=== PATIENT | female | born 1970 | race Caucasian/White ===

== ENCOUNTER 2023-11-09 09:31 | Emergency (ER) | payer OTHER, SELFPAY ==
[2023-11-09 09:36] VITALS: BP 153/96; PULSE 114; RESP 16; TEMP 36.7; O2SAT 99; BMI 27.6
--- NOTE | 2023-11-09 09:41 | ED.GENADUL1 ---
HPI - General Adult General Chief complaint: Urogenital-Female Stated complaint: BACK PAIN Time Seen by Provider: 11/09/23 09:38 Source: patient History of Present Illness HPI narrative: patient here complaining of right low back pain. She thinks it's kidney stones. She's had them before. She's never had removal of stones or stenting. She's not had fever shakes or chills. She's not seen blood in her urine. She's not on any antibiotics. The pain started last night. It radiates a little bit to the right lower abdomen. She knows that on her drive here. The pain does not radiate down her buttock or leg. She says does not feel like sciatica or musculoskeletal type pain. Related Data Allergies Allergy/AdvReac Type Severity Reaction Status Date / Time ciprofloxacin [From Cipro] Allergy Intermediate RASH Verified 11/09/23 09:36 acetaminophen [From Percocet] Allergy Unknown Verified 11/09/23 09:36 oxycodone [From Percocet] Allergy Unknown Verified 11/09/23 09:36 Exam Narrative Exam Narrative: awake alert pleasant oriented ?3 moves about comfortably. She reaches to her right paralumbar areas area discomfort. She has negative Larry's sign bilaterally. Her lungs are clear with no wheezes rales or rhonchi and there is no obvious musculoskeletal or skin abnormalities examining the flank. She has mild discomfort in the right lower abdomen but certainly no peritoneal findings. She does not have any discomfort when she moves about on the cart. She has no radiculopathy type symptoms. Constitutional Vital Signs, click to edit/add: Last Vital Signs Temp 98.1 F 11/09/23 09:36 Pulse 114 H 11/09/23 09:36 Resp 16 11/09/23 09:36 BP 153/96 H 11/09/23 09:36 Pulse Ox 99 11/09/23 09:36 O2 Del Method Room Air 11/09/23 09:36 Course Vital Signs Vital signs: Vital Signs Temperature 98.1 F 11/09/23 09:36 Pulse Rate 114 H 11/09/23 09:36 Respiratory Rate 16 11/09/23 09:36 Blood Pressure 153/96 H 11/09/23 09:36 Pulse Oximetry 99 11/09/23 09:36 Oxygen Delivery Method Room Air 11/09/23 09:36 Temperature 98.1 F 11/09/23 09:36 Pulse Rate 114 H 11/09/23 09:36 Respiratory Rate 16 11/09/23 09:36 Blood Pressure 153/96 H 11/09/23 09:36 Pulse Oximetry 99 11/09/23 09:36 Oxygen Delivery Method Room Air 11/09/23 09:36 Medical Decision Making MDM Narrative Medical decision making narrative: patient presents with history of kidney stones but atypical clinical scenario. Indeed her CT scan without contrast does not show any stones or evidence of pyelonephritis. The radiologist contacted me and suggested there is some calcification in the right pelvis and uterine area of uncertain etiology. He agreed that a CT scan with contrast might be helpful. That was done and although we have a uterine fibroid no other vascular abnormalities were noted. The appendix is normal. There is no kidney stones or nephrolithiasis. Her white blood cell count is normal. We will advise her to follow up with her senior graphic designer for the fibroid although that really doesn't seem to be causing much the pain. There could be a musculoskeletal component to this as well today. Lab Data Labs: Lab Results 11/09/23 11/09/23 Range/Units 09:58 11:35 WBC 9.9 (4.0-11.0) 10^3/uL RBC 4.15 L (4.20-5.40) 10^6/uL Hgb 12.8 (12.0-16.0) g/dL Hct 38.8 (36.0-48.0) % MCV 93.5 (81.0-99.0) fL MCH 30.8 (26.7-34.0) pg MCHC 33.0 (29.9-35.2) g/dL RDW 13.2 (11.0-15.0) % Plt Count 326 (150-450) 10^3/uL MPV 9.5 (9.5-13.5) fL Neut % (Auto) 67.5 (43.0-75.0) % Lymph % (Auto) 21.6 (20.5-60.0) % [place] % (Auto) 8.1 (1.7-12.0) % Eos % (Auto) 1.9 (0.9-7.0) % Baso % (Auto) 0.6 (0.2-2.0) % Neut # (Auto) 6.7 H (1.4-6.5) 10^3/uL Lymph # (Auto) 2.1 (1.2-3.8) 10^3/uL [place] # (Auto) 0.8 (0.3-0.8) 10^3/uL Eos # (Auto) 0.2 (0.0-0.7) 10^3/uL Baso # (Auto) 0.1 (0.0-0.1) 10^3/uL Abs Immat Gran (auto) 0.03 (0.00-0.03) 10^3/uL Imm/Tot Granulo (auto) 0.3 (0.0-0.5) % Sodium 133 L (136-145) mmol/L Potassium 3.6 (3.5-5.1) mmol/L Chloride 96 L (98-107) mmol/L Carbon Dioxide 27.3 (21.0-32.0) mmol/L Anion Gap 13.3 BUN 16.0 (7.0-18.0) mg/dL Creatinine 0.72 (0.55-1.02) mg/dL Est GFR ( Amer) >60 (>=60) Est GFR (Non-Af Amer) >60 (>=60) BUN/Creatinine Ratio 22.2 Glucose 105 (74-106) mg/dL Calcium 8.8 (8.5-10.1) mg/dL Urine Color Lt. yellow (YELLOW) Urine Clarity Clear (CLEAR) Urine pH 6.0 (5.0-9.0) Ur Specific [place] 1.010 (1.005-1.025) Urine Protein Negative (NEG/TRACE) mg/dL Urine Glucose (UA) Negative (NEGATIVE) mg/dL Urine Ketones >=80 A (NEGATIVE) mg/dL Urine Occult Blood Negative (NEGATIVE) Urine Nitrite Negative (NEGATIVE) Urine Bilirubin Negative (NEGATIVE) Urine Urobilinogen 0.2 (0.2-1.0) EU/dL Ur Leukocyte Esterase Small A (NEGATIVE) Urine RBC 0-2 (0-2) #/HPF Urine WBC 2-5 A (NONE SEEN) #/HPF Ur Squamous Epith Cells Few A (NONE/RARE) #/LPF Urine Crystals None seen (None Seen) #/HPF Urine Bacteria Small A (NONE SEEN) #/HPF Urine Casts None seen (NONE SEEN) #/LPF Urine Mucus None seen (NONE SEEN) Discharge Plan Discharge Chief Complaint: Urogenital-Female Clinical Impression: Fibroid, uterine Patient Disposition: Home, Self-Care Time of Disposition Decision: 12:59 Additional Instructions: follow-up with AUTO MECHANIC SUPERVISOR Stand Alone Forms: Portal Instructions Referrals: LIYA HAAS [Primary Care Provider] - 1 week
--- NOTE | 2023-11-09 09:42 | CT_ITS ---
The [address] [address] Patient Name: SOURAV RIBEIRO MRN: [id number] date: 1970 Sex: F Assigned Patient Location: ER Current Patient Location: ER Accession/Order Number: [id number] Exam Date: 11/09/2023 10:15 Report Date: 11/09/2023 12:20 At the request of: SAY BURCH Procedure: CT abdomen pelvis wo con CT abdomen pelvis wo con, 11/09/2023 10:15 AM EST INDICATION: kidney stone COMPARISON: There is no appropriate prior study for comparison. TECHNIQUE: Axial images of the abdomen and pelvis were obtained without administration of IV contrast. Multiplanar reformatted images were generated and reviewed as needed. Dose reduction techniques were achieved by using automated exposure control and/or adjustment of mA and/or kV according to patient size and/or use of iterative reconstruction technique. FINDINGS: Lungs: The base of lungs is clear. No pleural effusion is noted. Liver and gallbladder: The liver and gallbladder are unremarkable. No enlargement of intra or extrahepatic biliary ducts. Genitourinary system: No hydronephrosis. No nephrolithiasis. There is a linear opacity within the right side of pelvis most likely vascular. No abnormality of the urinary bladder is noted. Calcification within the uterus likely due to calcified myoma. Other solid abdominal organs: adrenal glands, pancreas, and spleen are unremarkable. Aorta: The infrarenal abdominal aorta is nonaneurysmal. Free fluid: There is no free fluid in the abdomen pelvis. Lymph node: No lymph node enlargement by size criteria is noted. Stomach and Bowel: No abnormality of the stomach is noted. No abnormality of small or large bowel is noted. There is an appendicolith within the proximal portion of the appendix. No periappendicular fatty stranding is noted. The distal appendix is air-filled. Bone: There is no suspicious osteolytic or osteoblastic lesion. Lower lumbar spine and SI joint degenerative changes are noted. CT/CT abdomen pelvis wo con IMPRESSION: Linear opacity in the right pelvis likely outside side of the right ureter and most likely vascular calcification along the right internal iliac artery. However, if there is a high clinical suspicious for renal stone, a CT with contrast is recommended for further evaluation. The results were communicated to referring clinician in the request by phone at 10:40 AM. Electronically authenticated by: CELESTINA BLAS Date: 11/09/2023 12:20
--- NOTE | 2023-11-09 09:44 | PC.NURSE ---
PT C/O RIGHT LOWER FLANK PAIN THAT STARTED AT 12AM. PT STATES HAS HAD HX SCIATICA AND IT DOES NOT FEEL LIKE SCIATICA. PT STATES HAS HX OF KIDNEY STONES IN [id number] THAT SHE WAS ABLE TO PASS ON OWN, BUT NEVER FOLLOWED UP WITH UROLOGIST. PT DENIES DYSURIA OR HEMATURIA BUT C/O NAUSEA
[2023-11-09] MEDS: KETOROLAC TROMETHAMINE 30 MG/ML VIAL IVP (10:01)
[2023-11-09 10:13] LABS: Basophils Absolute Auto 0.1 10^3/uL (0.0-0.1); Basophils Percent Auto 0.6 % (0.2-2.0); Eosinophils Absolute Auto 0.2 10^3/uL (0.0-0.7); Eosinophils Percent Auto 1.9 % (0.9-7.0); Hematocrit 38.8 % (36.0-48.0); Hemoglobin 12.8 g/dL (12.0-16.0); Immature Granulocytes Abs Auto 0.03 10^3/uL (0.00-0.03); Immature Granulocytes Pct Auto 0.3 % (0.0-0.5); Lymphocytes Absolute Auto 2.1 10^3/uL (1.2-3.8); Lymphocytes Percent Auto 21.6 % (20.5-60.0); Mean Corpuscular Hemoglobin 30.8 pg (26.7-34.0); Mean Corpuscular Volume 93.5 fL (81.0-99.0); Mean Platelet Volume 9.5 fL (9.5-13.5); Monocytes Absolute Auto 0.8 10^3/uL (0.3-0.8); Monocytes Percent Auto 8.1 % (1.7-12.0); Neutrophils Absolute Auto 6.7 10^3/uL (1.4-6.5); Neutrophils Percent Auto 67.5 % (43.0-75.0); Platelet Count 326 10^3/uL (150-450); Red Blood Count 4.15 10^6/uL (4.20-5.40); Red Cell Distribution Width 13.2 % (11.0-15.0); White Blood Count 9.9 10^3/uL (4.0-11.0)
[2023-11-09 10:24] LABS: Anion Gap 13.3; BUN Creatinine Ratio 22.2; Calcium 8.8 mg/dL (8.5-10.1); Carbon Dioxide 27.3 mmol/L (21.0-32.0); Chloride 96 mmol/L (98-107); Estimated GFR (African America >60 (>=60); Estimated GFR (Non-African Ame >60 (>=60); Glucose 105 mg/dL (74-106); Potassium 3.6 mmol/L (3.5-5.1); Sodium 133 mmol/L (136-145)
--- NOTE | 2023-11-09 10:43 | CT_ITS ---
[address] [address] Patient Name: SOURAV RIBEIRO MRN: [id number] date: 1970 Sex: F Assigned Patient Location: ER Current Patient Location: ER Accession/Order Number: [id number] Exam Date: 11/09/2023 11:30 Report Date: 11/09/2023 12:17 At the request of: SAY BURCH Procedure: CT abdomen pelvis w con EXAM: CT abdomen pelvis w con HISTORY: right low back pain COMPARISON: CT 11/09/2023. TECHNIQUE: Multiple axial CT images of the abdomen and pelvis were performed with IV contrast. 2D coronal and sagittal reformations were submitted for review. Dose reduction techniques were achieved by using automated exposure control and/or adjustment of mA and/or kV according to patient size and/or use of iterative reconstruction technique. FINDINGS: LUNGS: The lung bases are clear. No pleural effusion. ABDOMINAL AORTA: No aortic aneurysm identified. Minor calcific plaque. LYMPH NODES: No retroperitoneal, mesenteric or pelvic lymphadenopathy. LIVER: Liver contour appears smooth. Low-density lesion in the anterior right hepatic lobe suggests a small cyst measuring 0 9 cm. BILIARY TREE AND GALLBLADDER: No intrahepatic or extrahepatic bile duct dilatation. Gallbladder is fluid distended without calcified gallstones. PANCREAS: Normal in size without masses or ductal dilatation. No peripancreatic inflammatory changes. SPLEEN: Normal in size without focal lesions. ADRENAL GLANDS: Normal bilaterally, without nodules. KIDNEYS/URINARY BLADDER: Mild bilateral perinephric edema. Kidneys enhance in a symmetric fashion. No parenchymal lesions identified. No KUB stones or hydronephrosis identified. Slight thickening of urinary bladder wall with adjacent inflammation could be related to cystitis. GASTROINTESTINAL TRACT: Scattered fluid throughout nondilated small bowel. No bowel obstruction is identified. The stomach and duodenum appear unremarkable. Appendix appears normal. PERITONEAL CAVITY AND SURFACES: No free fluid. No free intraperitoneal air. REPRODUCTIVE ORGANS: Fibroid along the right uterine wall measuring 3.8 x 3.1 cm. Left ovarian cyst measures 2.1 x 1.8 cm. ABDOMINAL WALL: Noninflamed fat-containing umbilical hernia. OSSEOUS STRUCTURES: No aggressive appearing osseous lesions. No compression fracture is identified. Convex left curvature lumbar spine with mild degenerative disc disease. Prominent facet disease along the lower lumbar spine. CT/CT abdomen pelvis w con IMPRESSION: 1. Scattered fluid throughout nondilated small bowel may correlate with enteritis or ileus. No bowel obstruction. 2. Normal CT appearance of the appendix. 3. Mild inflammation along urinary bladder could be related to cystitis. No KUB stones or hydronephrosis. No CT signs of pyelonephritis. 4. Uterine fibroid measures 3.8 cm. Left ovarian cyst measures 2.1 cm. Electronically authenticated by: NEREIDA BULL Date: 11/09/2023 12:17
[2023-11-09 11:44] LABS: Bilirubin Urine NEGATIVE (NEGATIVE); Blood Urine NEGATIVE (NEGATIVE); Clarity Urine CLEAR (CLEAR); Color Urine LT. YELLOW (YELLOW); Glucose Urine UA NEGATIVE (NEGATIVE); Ketones Urine >=80 mg/dL (NEGATIVE); Leukocyte Esterase Urine SMALL (NEGATIVE); Nitrite Urine NEGATIVE (NEGATIVE); Protein Urine NEGATIVE (NEG/TRACE); Urobilinogen Urine 0.2 EU/dL (0.2-1.0)
[2023-11-09 11:47] LABS: Urine Microscopic Indicated YES
[2023-11-09 11:56] LABS: Bacteria Urine SMALL #/HPF (NONE SEEN); Cast Seen? NONE SEEN #/LPF (NONE SEEN); Crystals Seen? None Seen #/HPF (None Seen); Mucus Urine NONE SEEN (NONE SEEN); RBC Urine 0-2 #/HPF (0-2); Squamous Epithelial Cell Urine FEW #/LPF (NONE/RARE)
[2023-11-09 13:06] VITALS: BP 132/87; PULSE 94; RESP 18; O2SAT 99
== END 2023-11-09 13:07 | disposition home or self-care (01) ==
PROVIDERS: Emergency Provider Emergency Medicine Emergency Medical Services; PCP Internal Medicine
DX: D25.9 Leiomyoma of uterus, unspecified (principal); Z87.442 Personal history of urinary calculi
CPT/HCPCS: 36415; 74176; 74177; 80048; 81001; 85025; 96374; 99284; J1885; Q9967